=== PATIENT | female | born 1990 | race Two or more races ===

== ENCOUNTER 2024-03-16 10:18 | Emergency (ER) | payer MEDICAID, SELFPAY ==
[2024-03-16] VITALS (27 sets, daily range): BP systolic 116–134; BP diastolic 66–68; PULSE 92–120; RESP 19–98; TEMP 36.7–37.2; O2SAT 96–99; BMI 32.9
--- NOTE | 2024-03-16 10:05 | PD.LDTRIAGE2 ---
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 Assessment Systems Assessment Systems With in Normal Limits: Yes Contractions Evaluation Contractions Monitor Mode: External Resting Tone Palpate: Soft Heart Monitoring Heart Rate Assessment Monitor Mode: External FHR Baseline: 145 Variability: Moderate Accelerations: 15x15 FHR Pattern Category: Category l Movement Reported: Yes NST Reactive: Yes WNL for GA: Yes Amniotic Membranes Amniotic Membranes Amniotic Membrane Status: Intact Social risk screen Social Risk Screening Observed or verbalized signs of abuse or neglect: No 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 pt states she took a flu test a couple of weeks ago at Dr office and it was negative
--- NOTE | 2024-03-16 10:11 | PD.LDHP ---
Documentation for date of: 03/16/24 OB Labor/Induct. HPI History of Present Illness : 4 Para: 3 Term pregnancies: 3 pregnancies: 0 Living children: 3 History of Abortions: Spontaneous and Elective: 0 History of Vaginal deliveries: 3 History of sections: No History of : No DONATO: 04/08/24 Gestational Age (weeks): 36 Gestational Age (days): 5 History of present illness: Patient presents for worsening cough over the past 2-3 weeks. She was previously swabbed for flu a couple weeks ago and was negative. However, she has more sinus pressure and cough seems to be worsening rather than improving. She endorses hx of asthma, mild persistent with use of inhalers daily (increased use during current illness). She noted fever last night between 100-101F with chills, took tylenol. No fever or chills this morning. She has been adequately hydrating and no issues with n/v. She endorses normal movement. No loss of fluid or vaginal bleeding. Just occasional cramping. She has routine OB care with a physician in another city. Has routine OB visit scheduled at 1400 today. History of Present Adequate Care: Yes Narrative: Taking iron for anemia, no other complications during this . She has hx of 3 prior , proven to 6+lb. She passed her 1hr glucola test. Labs Narrative: No records available for review. Review of Systems Review of Systems Systems Reviewed: All systems reviewed, normal except as documented Constitutional Constitutional: Reports chills, Reports fever(s), Denies headache(s) and Denies poor appetite ENT Ears, Nose, Mouth, and Throat: Denies headache(s), Reports nasal congestion and Reports sinus pressure Cardiovascular Cardiovascular: Denies dyspnea and Denies syncope Respiratory Respiratory: Reports cough and Denies dyspnea Gastrointestinal Gastrointestinal: Denies nausea and Denies vomiting Genitourinary Genitourinary: Denies pelvic pain Neurologic Neurologic: Denies headache(s) and Denies syncope Past Medical History Surgical History SURGICAL: Negative Section Meds Home Medications and Allergies Allergies Allergy/AdvReac Type Severity Reaction Status Date / Time erythromycin base Allergy Severe rash/hives Verified 03/16/24 10:25 sulfisoxazole Allergy Severe rash/hives Verified 03/16/24 10:25 OB Exam Physical Exam Vital signs: Temp Pulse Resp BP Pulse Ox O2 Del Method 98.1 F 97 19 134/66 H 97 Room Air 03/16/24 08:13 03/16/24 08:13 03/16/24 08:13 03/16/24 08:13 03/16/24 10:06 03/16/24 08:13 Detailed Labor and Delivery Exam Membranes: intact monitor accelerations: 15x15 monitor decelerations: None custodial variability: Moderate (11-25) Contraction frequency (min): rare OB Results Impressions Impression: Patient is a 33yo with [facility]UP at 36w5d presenting for OB clearance prior to ER evaluation for URI symptoms in the setting of mild persistent asthma. Vitals wnl (satting 96% in room air, afebrile), benign exam. No ctx pattern. Reassuring assessment. Plan: -Provided reassurance regarding status and no evidence of pre-term labor -Patient cleared to go to ER for further workup of URI -Continue routine follow up with OB as scheduled Dr. Dc
--- NOTE | 2024-03-16 10:45 | EDNOTE_ITS ---
Upper Respiratory Inf. RME/HPI General Chief Complaint: Flu Like Symptoms Stated Complaint: cleared by ob, c/o cough Time Seen by Provider: 03/16/24 10:47 Source: patient Arrival date/time: 03/16/24 10:18 33-year-old female with no known medical history presents to the emergency room with a chief complaint of coughing congestion and intermittent fevers x 3 days. Patient is currently 36 weeks she was cleared by her OB department. Mode of arrival: ambulatory Limitations: no limitations Related Data Previous Rx's ?Medication ?Instructions ?Recorded fluconazole 200 mg tablet 400 mg (2 x 200 mg) PO QDAY #60 03/21/22 tabs amoxicillin 500 mg capsule 500 mg PO BID 7 days #14 caps 03/16/24 Allergies Allergy/AdvReac Type Severity Reaction Status Date / Time erythromycin base Allergy Severe rash/hives Verified 03/16/24 10:25 sulfisoxazole Allergy Severe rash/hives Verified 03/16/24 10:25 Review of Systems Review of Systems Systems Reviewed: All systems reviewed, normal except as documented Constitutional Constitutional: Reports system reviewed and no additional complaints, except as documented, Denies fatigue, Denies fever(s), Denies headache(s) and Denies weakness Eyes Eyes: Reports system reviewed and no additional complaints, except as documented, Denies blurry vision and Denies change in vision ENT Ears, Nose, Mouth, and Throat: Reports system reviewed and no additional complaints, except as documented, Denies otalgia, Denies headache(s), Denies nasal congestion, Denies throat swelling and Denies vertigo Cardiovascular Cardiovascular: Reports system reviewed and no additional complaints, except as documented, Denies chest pain, Reports dyspnea and Denies dyspnea on exertion Respiratory Respiratory: Reports system reviewed and no additional complaints, except as documented, Reports chest congestion, Reports cough, Reports dyspnea, Denies dyspnea on exertion and Denies wheezing Gastrointestinal Gastrointestinal: Reports system reviewed and no additional complaints, except as documented, Denies abdominal pain, Denies cramping, Denies nausea and Denies vomiting Genitourinary Genitourinary: Reports system reviewed and no additional complaints, except as documented Musculoskeletal Musculoskeletal: Reports system reviewed and no additional complaints, except as documented and Denies back pain Integumentary/Breasts Skin/Breast: Reports system reviewed and no additional complaints, except as documented and Denies wounds Neurologic Neurologic: Reports system reviewed and no additional complaints, except as documented, Denies confusion, Denies headache(s), Denies lack of coordination, Denies vertigo and Denies weakness Psychiatric Psychiatric: Reports system reviewed and no additional complaints, except as documented, Denies anxiety, Denies confusion, Denies depression, Denies paranoia, Denies suicidal ideation and Denies tactile hallucinations Endocrine Endocrine: Reports system reviewed and no additional complaints, except as documented and Denies fatigue Hematologic/Lymphatic Hematologic/Lymphatic: Reports system reviewed and no additional complaints, except as documented and Denies lymphadenopathy Allergic/Immunologic Allergic/Immunologic: Reports system reviewed and no additional complaints, except as documented, Denies throat swelling, Denies urticaria and Denies wheezing ED Exam General Limitations: Present no limitations General appearance: Present alert and in no apparent distress Head Head exam: Present atraumatic Eye Eye exam: Present normal appearance, PERRL and EOMI ENT ENT exam: Present normal exam, normal oropharynx and mucous membranes moist Neck Neck exam: Present normal inspection, full ROM and trachea midline Chest Chest inspection: Present normal inspection and symmetric chest wall rise Respiratory Respiratory exam: Present normal lung sounds bilaterally and wheezes; Absent respiratory distress, stridor, accessory muscle use or prolonged expiratory phase Expanded Respiratory Exam Location: Right: wheezes and Lower: wheezes Cardiovascular Cardiovascular exam: Present regular rate, normal rhythm and normal heart sounds Abdominal Exam Abdominal exam: Present soft and normal bowel sounds Extremities Exam Extremities exam: Present normal inspection and full ROM Back Exam Back exam: Present normal inspection and full ROM Neurological Exam Neurological exam: Present alert, oriented X3 and CN II-XII intact Psychiatric Psychiatric exam: Present normal affect and normal mood Skin Skin exam: Present warm, dry, intact and normal color Course Quality Measures none Orders Category Date Time Status Bedside COVID-19 Antigen Test NOW Care 03/16/24 10:44 Completed Bedside Influenza A&B Antigen Test NOW Care 03/16/24 10:44 Completed Acetaminophen Tab [Tylenol ES Tab] Med 03/16/24 11:42 Discontinued 1,000 mg PO X1 ONE Albuterol/Ipratr Rt Stefany [Duoneb Rt Stefany] Med 03/16/24 10:45 Discontinued 3 ml INH X1 ONE predniSONE Med 03/16/24 10:47 Discontinued 20 mg PO X1 ONE Vital Signs Vital signs: Vital Signs Pulse Rate 106 H 03/16/24 08:07 Blood Pressure 134/66 H 03/16/24 08:07 Upper Respiratory Infection MDM Narrative MDM Narrative:: 33-year-old female with no known medical history presents to the emergency room with a chief complaint of coughing congestion and intermittent fevers x 3 days. Patient is currently 36 weeks she was cleared by her OB department. Clinically the patient appears nontoxic and in no apparent distress. Physical examination shows mild wheezing to the right lower lobe. The patient is currently 36 weeks and states her shortness of breath is even worse. Influenza and COVID-19 results were completed and the patient tested positive for influenza B. A breathing treatment and steroids were given and the patient was reevaluated in 45 minutes with significant improvement to her symptoms. Patient was discharged and educated to follow-up with her primary care provider and return to the emergency room for any evidence of worsening signs or symptoms Patient data External records reviewed:: [facility] previous records Clinical information provided by:: patient Social determinants that could affect healthcare access:: none Patient has the following chronic illnesses:: No chronic illness How is presenting disease/condition affected by chronic disease/condition?: no chronic disease Evaluation data The following diagnostics were reviewed and interpreted by me:: lab results and radiology exam(s) Lab and/or radiology exams considered but not ordered:: Labs and radiology exams considered and ordered Interpretation Summary: N/A Medications / Prescriptions Medications or Prescriptions considered but not ordered:: Medication given Medication administrations:: Medication Administration History Discontinued Medications Acetaminophen (Acetaminophen 500 Mg Tablet) 1,000 mg PO X1 ONE Stop: 03/16/24 11:43 Last Admin: 03/16/24 11:50 Dose: 1,000 mg Documented By: CEFERINO Albuterol/Ipratropium (Albuterol/Ipratropium (Duoneb) Rt Stefany 3 Ml Nebu) 3 ml INH X1 ONE Stop: 03/16/24 10:46 Last Admin: 03/16/24 11:59 Dose: 3 ml Documented By: LUZ Prednisone (Prednisone 20 Mg Tablet) 20 mg PO X1 ONE Stop: 03/16/24 10:48 Last Admin: 03/16/24 11:53 Dose: 20 mg Documented By: CEFERINO Medication given Consultations Consultation(s) initiated? (list below): No Diagnosis Upper Respiratory Differential Diagnosis: upper respiratory infection, viral infection, bronchitis, influenza and pharyngitis Most likely diagnosis given after review of the tests above:: Influenza B Admission Indicated Admission indicated?: not indicated Admission Request Was there a request for admission?: No Disposition Plan Disposition Plan: Discharge Discharge Attestation Discharge Attestation: The patient and all family members were given an opportunity to ask questions and understood the discharge instructions. Discharge instructions specifically effects, indications for sooner follow up or return to the emergency department, and the expected course of current diagnosis. Patient condition: Stable Discharge Plan Plan Patient Disposition: HOME (Self Care) Disposition Comment: Stable Prescriptions/Referrals Prescriptions/Med Rec: New amoxicillin 500 mg capsule 500 mg PO BID 7 Days Qty: 14 0RF No Action fluconazole 200 mg tablet 400 mg PO QDAY Qty: 60 0RF Referrals: No Primary/Family,Physician [Primary Care Provider] - Problem List Clinical Impression: Influenza B Patient/Caregiver Discharge Instructions Discharge Activity: resume usual activities Other Activity Instructions:: Follow up with OB provider Dr Bey and make him aware of visit and any medication prescribed during visit. Make sure you attend next appt and all appointments until delivery. Education Materials: ED Influenza (Adult) Additional Instructions: Please follow-up with your primary care provider in the next 24 to 48 hours. Your influenza test was positive for influenza For any evidence of worsening signs or symptoms return to the emergency room immediately Print Language: Slovak Stand Alone Forms: [employer] Award Info., Patient Portal Info Letter, Work/Release Restrictions PA/BEL Supervising Physician PA/BEL Supervising Physician: Dr. Kern
[2024-03-16] MEDS: ACETAMINOPHEN 500 MG TABLET 1000 MG PO (11:50)
[2024-03-16] MEDS: predniSONE 20 MG TABLET PO (11:53)
[2024-03-16] MEDS: ALBUTEROL/IPRATROPIUM (Duoneb) RT SOL 3 ML NEBU INH (11:59)
== END 2024-03-16 14:51 | disposition home or self-care (01) ==
LOC: SERX 11:35
PROVIDERS: Emergency Provider Emergency Medicine
DX: O99.513 Diseases of the respiratory system complicating pregnancy, third trimester (principal); J10.1 Influenza due to other identified influenza virus with other respiratory manifestations; Z3A.36 36 weeks gestation of pregnancy
CPT/HCPCS: 59025; 87400; 87811; 94640; 99283; A9270; J7512

== ENCOUNTER 2024-09-09 09:51 | Emergency (ER) | payer MEDICAID, SELFPAY ==
[2024-09-09 09:52] VITALS: BMI 29.2
[2024-09-09 10:04] VITALS: BP 133/86; PULSE 109; RESP 20; TEMP 37.3; O2SAT 97; BMI 31.1
--- NOTE | 2024-09-09 10:11 | XR_ITS ---
Examination: Abdomen sonogram, Limited Date and time of exam: September 09, 2024 1123 hours INDICATIONS: Right lower abdominal pain beginning 2 days ago Technique: Real-time mccann scale transabdominal sonographic images of the upper abdomen obtained. Findings: No sonographic visualization appendix IMPRESSION: No sonographic visualization appendix
--- NOTE | 2024-09-09 10:11 | XR_ITS ---
Examination: CT abdomen and pelvis without contrast. Coronal 3-D reconstructions. Sagittal 2-D reconstructions. Date and time of exam:September 09, 2024 1156 hours COMPARISON: March 20, 2022 INDICATIONS: Right-sided flank pain with nausea vomiting beginning today CTDI: vol (mGy): 8.52 DLP: (mGycm): 454 Technique: Axial images of the abdomen have been obtained, 3 mm slice thickness Intravenous contrast material has not been administered. Low dose protocols were performed. One or more of the following dose reduction techniques were used; automated exposure control, adjustment of the mA and/or KV according to patient size, use of iterative reconstruction technique. Findings: Fatty infiltration throughout the liver Hepatosplenomegaly. No gallstones No pancreatic or adrenal mass Subtle minute areas of calcification in both kidneys 1 mm No hydronephrosis or ureteral calculi Aorta normal size Normal appendix No bowel obstruction Bilateral ovarian follicular cysts No bladder mass or bladder calculi IMPRESSION: Tiny nonobstructing bilateral renal calculi No hydronephrosis or ureteral calculi Normal appendix No bladder mass or bladder calculi
--- NOTE | 2024-09-09 10:12 | PD.EDRME ---
Rapid Medical Screening Exam RME Arrival date/time: 09/09/24 09:51 33-year-old female with no known medical history presents to the emergency room with a chief complaint of right-sided flank pain, right sided abdominal pain and tenderness, nausea, vomiting, fevers x 2 days I have greeted and performed a focused initial assessment of this patient. A comprehensive ED assessment and evaluation of the patient, analysis of all test results, and completion of the medical decision making process will be conducted by additional ED providers. Chief Complaint: Abdominal Pain Time Seen by Provider: 09/09/24 09:58 Vital signs: Vital Signs Temperature 99.2 F 09/09/24 10:04 Pulse Rate 109 H 09/09/24 10:04 Respiratory Rate 20 09/09/24 10:04 Blood Pressure 133/86 H 09/09/24 10:04 Pulse Oximetry (%) 97 09/09/24 10:04 Vital signs reviewed by provider: Yes
[2024-09-09 11:01] LABS: Basophils # (Auto) 0.0 Thou/mm3 (0.0-0.2); Basophils % (Auto) 0 % (0-2.5); Eosinophils # (Auto) 0.0 Thou/mm3 (0.0-0.5); Eosinophils % (Auto) 0 % (0-10); Hematocrit 41.0 % (36.0-46.0); Hemoglobin 14.6 g/dL (12.0-16.0); Immature Granulocytes Auto 0.03 Thou/mm3 (0.00-0.00); Lymphocytes # (Auto) 1.0 Thou/mm3 (1.0-4.8); Lymphocytes % (Auto) 11 % (10-50); Mean Corpuscular HGB Conc 35.6 g/dl (31.0-37.0); Mean Corpuscular Hemoglobin 30.6 pg (25.0-35.0); Mean Corpuscular Volume 86 fL (80-100); Monocytes # (Auto) 0.5 Thou/mm3 (0.0-0.8); Monocytes % (Auto) 5 % (0-12); Neutrophils # (Auto) 7.6 Thou/mm3 (1.8-7.7); Neutrophils % (Auto) 84 % (37-80); Nucleated Red Blood Cell # 0.00 Thou/mm3 (0.00-0.00); Nucleated Red Blood Cell % 0 /100 WBC (0); Platelet Count 182 Thou/mm3 (140-440); RDW Standard Deviation 39.3 fL (36.4-46.3); Red Blood Count 4.77 Miln/mm3 (4.00-5.20); White Blood Count 9.1 Thou/mm3 (3.6-11.0)
[2024-09-09] MEDS: HYDROcodone/APAP 5/325 TABLET 1 TAB PO (11:10)
[2024-09-09] MEDS: ONDANSETRON ODT 4 MG TABRAP PO (11:10)
[2024-09-09 11:24] LABS: Collection Type, Urine Clean Catch
[2024-09-09 11:25] LABS: Alanine Aminotransferase 18 U/L (10-49); Albumin, Serum 4.4 gm/dL (3.5-5.0); Albumin/Globulin Ratio 1.4 (1.2-2.2); Alkaline Phosphatase 107 U/L (46-116); Anion Gap 7 (7-16); Aspartate Amino Transferase 22 U/L (0-34); BUN/Creatinine Ratio 18 Ratio (12-20); Bilirubin,Total 0.6 mg/dL (0.3-1.2); Blood Urea Nitrogen 11 mg/dL (9-23); Calcium 8.6 mg/dL (8.3-10.6); Calcium (Corrected) 8.6 mg/dL (8.5-10.1); Carbon Dioxide 26.5 mMol/L (20.0-31.0); Chloride 106 mMol/L (98-107); Creatinine (Component) 0.6 mg/dL (0.6-1.3); Estimated Creatinine Clearance 114.5 mL/min (>60); Globulin 3.1 gm/dL (2.3-3.5); Glucose 108 mg/dL (74-106); Lipase 27 U/L (12-53); Osmolality,Calculated 277 (275-295); Potassium 4.2 mMol/L (3.4-5.1); Sodium 139 mMol/L (136-145); Total Protein 7.5 gm/dL (5.7-8.2); eGFR > 60 See Note
[2024-09-09 11:30] LABS: HCG Qualitative,Urine Negative
[2024-09-09 11:47] LABS: Bilirubin,Urine Negative (Negative); Blood,Urine Trace (Negative); Clarity,Urine Clear (Clear/Hazy); Color,Urine Yellow (Lt Yel-Yel); Glucose, Urine Negative (Negative); Ketones,Urine 1+ (Negative); Leukocyte Esterase,Urine Positive (Negative); Nitrite,Urine Negative (Negative); PH,Urine 6.0 (5.0-7.0); Protein,Urine Trace (Neg - Trace); RBC,Urine 7 /hpf (0-3); Specific Gravity,Urine 1.030 (1.001-1.035); Squamous Epithelial Cell,Urine 6 /hpf (0-5); Urobilinogen,Urine Negative mg/dL (0.0-1.0); WBC,Urine 4 /hpf (0-5)
[2024-09-09 13:41] VITALS: BP 157/102; PULSE 111; RESP 20; TEMP 37; O2SAT 96
--- NOTE | 2024-09-09 13:47 | PD.EDABDPN ---
ED Abdominal Pain RME/HPI General Chief Complaint: Abdominal Pain Stated complaint: RLQ PAIN FOR 2 DAYS Time seen by provider: 09/09/24 09:58 Arrival date/time: 09/09/24 09:51 Source: patient Limitations: no limitations RME / HPI RME / HPI narrative: 33-year-old female who is here today with a 1 day history of diffuse abdominal pain and cramping. She has nausea and vomiting. No diarrhea. She denies any urinary changes. Has no flank pain or dysuria. Has no fevers or chills. She denies any chronic illness and states she has had no prior surgeries. She has no other acute complaints. Related Data Previous Rx's ?Medication ?Instructions ?Recorded fluconazole 200 mg tablet 400 mg (2 x 200 mg) PO QDAY #60 03/21/22 tabs dicyclomine 20 mg tablet 20 mg PO TID #20 tabs 09/09/24 ondansetron HCl 4 mg tablet 4 mg PO QDAY 3 days #3 tabs 09/09/24 Allergies Allergy/AdvReac Type Severity Reaction Status Date / Time erythromycin base Allergy Severe rash/hives Verified 09/09/24 09:56 sulfisoxazole Allergy Severe rash/hives Verified 09/09/24 09:56 Review of Systems Review of Systems Systems Reviewed: All systems reviewed, normal except as documented ED Exam General Limitations: Present no limitations General appearance: Present alert and other (Tearful but nontoxic-appearing.) Head Head exam: Present atraumatic Eye Eye exam: Present normal appearance, PERRL and EOMI ENT ENT exam: Present normal exam, normal oropharynx and mucous membranes moist Neck Neck exam: Present normal inspection, full ROM and trachea midline Chest Chest inspection: Present normal inspection and symmetric chest wall rise Respiratory Respiratory exam: Present normal lung sounds bilaterally Cardiovascular Cardiovascular exam: Present regular rate, normal rhythm and normal heart sounds Abdominal Exam Abdominal exam: Present soft and normal bowel sounds Extremities Exam Extremities exam: Present normal inspection and full ROM Back Exam Back exam: Present normal inspection and full ROM Neurological Exam Neurological exam: Present alert, oriented X3 and CN II-XII intact Psychiatric Psychiatric exam: Present normal affect and normal mood Skin Skin exam: Present warm, dry, intact and normal color Course Quality Measures none Orders Category Date Time Status CT abdomen pelvis wo con Stat Exams 09/09/24 10:11 Completed US abdomen limited Stat Exams 09/09/24 10:11 Completed CBC Stat Lab 09/09/24 10:46 Completed CMP [Comprehensive Metabolic Panel] Stat Lab 09/09/24 10:46 Completed HCG Qualitative,Urine Stat Lab 09/09/24 11:15 Completed Lipase Stat Lab 09/09/24 10:46 Completed UA [Urinalysis] Stat Lab 09/09/24 11:15 Completed Urine Culture Stat Lab 09/09/24 11:15 Received Dicyclomine [Bentyl] Med 09/09/24 13:46 Once 20 mg PO X1 ONE HYDROcodone*/APAP 5/325 [[place] 5/325] Med 09/09/24 10:11 Discontinued 1 tab PO X1 ONE Ondansetron Odt [Zofran Odt] Med 09/09/24 10:12 Discontinued 4 mg PO X1 ONE oxyCODONE CONTROLLED RELEASE [OxyCONTIN] Med 09/09/24 13:46 Once 5 mg PO X1 ONE Vital Signs Vital signs: Vital Signs Temperature 99.2 F 09/09/24 10:04 Pulse Rate 109 H 09/09/24 10:04 Respiratory Rate 20 09/09/24 10:04 Blood Pressure 133/86 H 09/09/24 10:04 Pulse Oximetry (%) 97 09/09/24 10:04 Abdominal Pain MDM MDM Narrative MDM Narrative:: 33-year-old female who is here today for diffuse abdominal pain, nausea, and vomiting. Her abdomen is soft and tender on exam. Vital signs are stable. CBC reveals no leukocytosis. Hemoglobin and hematocrit are stable. Metabolic panel is unremarkable. Lipase is unremarkable. Urinalysis reveals 7 erythrocytes and 6 squamous epithelial cells. I believe this reflects a contaminated sample. CT abdomen pelvis was obtained which reveal renal calculi without any urethral involvement. CT is otherwise unremarkable. Discussed possible colonic spasms with the patient. I do believe she will discharge from the ER. She be discharged with prescription of Bentyl. She is asked to follow-up with a primary doctor this week. Return here at anytime for any worsening or emergent changes. Patient data External records reviewed:: None Clinical information provided by:: patient Social determinants that could affect healthcare access:: none Patient has the following chronic illnesses:: n/a How is presenting disease/condition affected by chronic disease/condition?: no chronic disease Evaluation data The following diagnostics were reviewed and interpreted by me:: lab results (No leukocytosis, elevated lipase, or metabolic derangement) and radiology exam(s) (No obstructive kidney stones or acute pathology.) Lab and/or radiology exams considered but not ordered:: n/a Interpretation Summary: Work appears essentially unremarkable. Medications / Prescriptions Medications or Prescriptions considered but not ordered:: n/a Medication administrations:: Medication Administration History Discontinued Medications Hydrocodone Bitart/Acetaminophen (Hydrocodone/Apap 5/325 Tablet) 1 tab PO X1 ONE Stop: 09/09/24 10:12 Last Admin: 09/09/24 11:10 Dose: 1 tab Documented By: MICHAEL Ondansetron HCl (Ondansetron Odt 4 Mg Tabrap) 4 mg PO X1 ONE; Protocol Stop: 09/09/24 10:13 Last Admin: 09/09/24 11:10 Dose: 4 mg Documented By: MICHAEL See above Consultations Consultation(s) initiated? (list below): No Diagnosis Differential diagnosis abdominal pain: abdominal pain, acute appendicitis, calculus of kidney, constipation and diverticulitis Most likely diagnosis given after review of the tests above:: Abdominal pain Admission Indicated Admission indicated?: not indicated Admission Request Was there a request for admission?: No Disposition Plan Disposition Plan: Discharge Discharge Attestation Discharge Attestation: The patient and all family members were given an opportunity to ask questions and understood the discharge instructions. Discharge instructions specifically effects, indications for sooner follow up or return to the emergency department, and the expected course of current diagnosis. Patient condition: Stable Discharge Plan Plan Patient Disposition: HOME (Self Care) Patient condition on transfer: Stable Prescriptions/Referrals Prescriptions/Med Rec: New dicyclomine 20 mg tablet 20 mg PO TID Qty: 20 0RF ondansetron HCl 4 mg tablet 4 mg PO QDAY 3 Days Qty: 3 0RF No Action fluconazole 200 mg tablet 400 mg PO QDAY Qty: 60 0RF Referrals: Mikey Lopez, [employer] SUPERVISOR [Primary Care Provider] - In 1 week Problem List Clinical Impression: Abdominal pain Patient/Caregiver Discharge Instructions Education Materials: Abdominal Pain Additional Instructions: - Contact your primary clinic to schedule close follow-up appointment. - Use the provided medications as prescribed for symptomatic relief. - Please return to emergency room anytime for any worsening changes to consider further workup. Print Language: French Stand Alone Forms: [employer] Award Info., Patient Portal Info Letter
[2024-09-09] MEDS: DICYCLOMINE 10 MG CAPSULE 20 MG PO (14:01)
[2024-09-09] MEDS: oxyCODONE HCL 5 MG IR TAB PO (14:02)
--- NOTE | 2024-09-09 14:55 | PC.NURSE ---
NA x1 @[id number]
--- NOTE | 2024-09-09 15:14 | PC.NURSE ---
NA x 2 and 3 @ 1456 and 1513
== END 2024-09-09 15:15 | disposition home or self-care (01) ==
PROVIDERS: Emergency Provider Nurse Practitioner Family; PCP Nurse Practitioner Family
DX: N20.0 Calculus of kidney (principal)
CPT/HCPCS: 36415; 74176; 76705; 80053; 81001; 81025; 83690; 85025; 87086; 99284; Q0162; A9270